=== PATIENT | female | born 1935 | race Two or more races ===

== ENCOUNTER 2022-09-10 21:14 | Emergency (ER) | payer OTHER ==
[~2022-09-10] VITALS: Ht 160 cm; Wt 81.6 kg
[2022-09-10] MEDS ORDERED: TOPROL XL25 M1 PO (21:27)
[2022-09-10] MEDS ORDERED: DUI500 PO (23:28)
== END 2022-09-10 23:36 | disposition home or self-care (01) ==
LOC: ER 21:14
DX: R60.0 Localized edema (principal); L03.116 Cellulitis of left lower limb; L03.115 Cellulitis of right lower limb; I73.89 Other specified peripheral vascular diseases; Z95.4 Presence of other heart-valve replacement

== ENCOUNTER 2022-09-28 15:26 | Inpatient (IN) | payer OTHER ==
[~2022-09-28] VITALS: Ht 162.6 cm; Wt 90.7 kg
[~2022-09-28 15:26] MED LIST: DUI500 PO; TOPROL XL25 M1 PO
--- NOTE | 2022-09-28 16:40 | NUR ---
PTE ALERTA Y ORIENTADA X3 REFIERE QUE TIENE LOS DOS PIES EDEMATOSOS DESDE HACE VARIOS WOODS. SE OBSERVA AMBOS PIES EDEMATOSOS Y EL PIE KAVYA SUPURANDO. SE REALIZAN V/S Y SE UBICA.
--- NOTE | 2022-09-28 17:12 | NUR ---
MS BURNHAM ORIENTA PTE SOBRE MADISYN DE MUESTRAS LAS CUALES SE EXTRAEN BAJO MEDIDAS ASEPTICAS,SE NOTIFICA ESTUDIO PENDIENTE.
[2022-09-29] MEDS ORDERED: KETOCONAZOLE15 GM (08:18)
[2022-09-29] MEDS ORDERED: GABAPENTIN100 M2 (08:18)
[2022-09-29] MEDS ORDERED: HYDROCHLOROTHIA25 MG (08:22)
[2022-09-29] MEDS ORDERED: METOPROLOL TAR100 MG (08:22)
[2022-10-06] MEDS ORDERED: CIPRO500 MG PO (19:17)
[2022-10-06] MEDS ORDERED: MORGIDOX100 MG PO (19:18)
== END 2022-10-06 19:47 | disposition home or self-care (01) | DRG 603 ==
LOC: ER 15:26 → EDBD 21:40 → MEDI 21:40
PROVIDERS: ADMIT Internal Medicine; ATTEND Internal Medicine
PROC: B54CZZZ Ultrasonography of Left Lower Extremity Veins (ICD-10-PCS; principal; 2022-09-28)
PROC: B246ZZZ Ultrasonography of Right and Left Heart (ICD-10-PCS; 2022-09-28)
PROC: B44GZZZ Ultrasonography of Left Lower Extremity Arteries (ICD-10-PCS; 2022-09-28)
PROC: 3E0F7SF Introduction of Other Gas into Respiratory Tract, Via Natural or Artificial Opening (ICD-10-PCS; 2022-09-28)
PROC: 4A12X4Z Monitoring of Cardiac Electrical Activity, External Approach (ICD-10-PCS; 2022-10-04)
DX: L03.116 Cellulitis of left lower limb (principal); L97.829 Non-pressure chronic ulcer of other part of left lower leg with unspecified severity; E87.1 Hypo-osmolality and hyponatremia; B96.5 Pseudomonas (aeruginosa) (mallei) (pseudomallei) as the cause of diseases classified elsewhere; R60.0 Localized edema; I73.89 Other specified peripheral vascular diseases; I87.2 Venous insufficiency (chronic) (peripheral); I11.0 Hypertensive heart disease with heart failure; I50.9 Heart failure, unspecified; F41.9 Anxiety disorder, unspecified; E83.42 Hypomagnesemia; R41.0 Disorientation, unspecified; Z20.822 Contact with and (suspected) exposure to COVID-19